=== PATIENT | male | born 1965 | race Two or more races ===

== ENCOUNTER 2022-04-09 11:28 | Inpatient (IN) | payer OTHER ==
[~2022-04-09] VITALS: Ht 175.3 cm; Wt 123.0 kg
[2022-04-09 21:43] VITALS: BP 127/86
[2022-04-09 22:29] VITALS: BP 127/86
[2022-04-09] MEDS ORDERED: MORPHINE SULFATE INJ 2 MG/ml SYRG IV PRN (23:30)
[2022-04-09] MEDS ORDERED: NITROGLYCERIN 0.4 MG SL TAB SL PRN (23:30)
[2022-04-09] MEDS ORDERED: DEXTROSE (50%) 50ML SYRG IV PRN (23:45)
[2022-04-10] VITALS (8 sets, daily range): BP systolic 103–117; BP diastolic 64–77
[2022-04-10 06:12] LABS: Basophils # (auto) 0 10 ^3/uL (0-0.2); Basophils % (auto) 0.8 % (0.0-2.0); Eosinophils # (auto) 0.2 10 ^3/uL (0-0.8); Eosinophils % (auto) 3.9 % (0.0-7.0); Hematocrit 47.5 % (41.0-53.0); Hemoglobin 15.9 g/dL (13.5-17.5); Lymphocytes # (auto) 1.8 10 ^3/uL (0.4-5.4); Lymphocytes % (auto) 32.8 % (10.0-50.0); Mean Corpuscular Hemoglobin 30.2 pg (28.0-32.0); Mean Corpuscular Hgb Conc. 33.5 g/dL (32.0-36.0); Mean Corpuscular Volume 90.3 fL (80.0-100.0); Monocytes # (auto) 0.5 10 ^3/uL (0-1.3); Monocytes % (auto) 9.3 % (0.0-12.0); Neutrophils % (auto) 53.2 % (37.0-80.0); Nucleated Red Blood Cells % 0.1 %; Red Blood Cells 5.26 10^6/uL (4.5-5.90); Red Cell Distribution Width 13.1 % (11.8-14.3); White Blood Cell 5.6 10^3/uL (4.4-10.8)
[2022-04-10 06:30] LABS: Albumin 3.6 g/dL (3.4-5.0); Calcium 8.8 mg/dL (8.5-10.1); Potassium 3.7 mmol/L (3.5-5.1)
[2022-04-10 06:34] LABS: BUN/Creatinine Ratio 16.3; Bilirubin, Total 0.8 mg/dL (0.2-1.0); Total Protein 6.4 g/dL (6.4-8.2)
[2022-04-10] MEDS: InsuLIN REG 1unit/0.01ml Soln (100units/ml) SC SCH ×4 (07:00→22:06)
[2022-04-10] MEDS: ACCU-CHEK COMFORT CURVE STRIP VI SCH ×4 (07:51→22:04)
[2022-04-10 08:00] LABS: Salicylate < 1.7 mg/dL (2.8-20.0)
[2022-04-10 08:05] LABS: Acetaminophen < 2.0 ug/mL (10-30)
[2022-04-10 08:40] LABS: Folate (Folic Acid) 22.27 ng/mL (5.38-24)
[2022-04-10] MEDS ORDERED: CLOPIDOGREL BISULFATE 75 MG TAB PO SCH (10:00)
[2022-04-10] MEDS ORDERED: ASPirin 81 mg TAB PO SCH (10:00)
[2022-04-10] MEDS ORDERED: ENOXAPARIN SOD 40 MG/0.4 ML SYRINGE SC SCH ×2 (10:00)
[2022-04-10 10:56] LABS: Urine Bacteria NONE SEEN /hpf (None Seen); Urine Blood Negative /uL (Negative); Urine Specific Gravity 1.006 (1.001-1.035); Urine WBC <1 /hpf (0 - 3)
[2022-04-10] MEDS ORDERED: ERGOCALCIFEROL 50,000 UNIT(1.25MG) CAP PO SCH ×2 (11:00→16:30)
[2022-04-10 11:21] LABS: Alcohol, Urine < 3.0 mg/dL (0-10); Amphetamine Screen, Urine NEGATIVE (NEGATIVE); Barbiturate Scree,Urine NEGATIVE (NEGATIVE); Benzodiazephine Screen, Urine NEGATIVE (NEGATIVE); Cannabinoid Screen, Urine NEGATIVE (NEGATIVE); Cocaine Screen, Urine NEGATIVE (NEGATIVE); Opiate Scree,Urine NEGATIVE (NEGATIVE); Phencyclidine Screen, Urine NEGATIVE (NEGATIVE)
[2022-04-10 14:08] LABS: Hepatitis B Surface Antibody Negative (Negative)
[2022-04-10 14:14] LABS: Hepatitis C Antibody Negative (Negative)
[2022-04-10 14:27] LABS: Hepatitis A Total Antibody Positive (Negative)
[2022-04-10] MEDS ORDERED: AMIODARONE HCL 200 MG TAB PO ONE (16:15)
[2022-04-10] MEDS: AMIODARONE HCL 200 MG TAB PO SCH (22:07)
[2022-04-10] MEDS: APIXABAN 5 MG TAB PO SCH (22:07)
[2022-04-11 05:13] VITALS: BP 126/88
[2022-04-11 06:26] LABS: Albumin 3.5 g/dL (3.4-5.0); BUN/Creatinine Ratio 18.1; Bilirubin, Total 0.8 mg/dL (0.2-1.0); Calcium 8.5 mg/dL (8.5-10.1); Total Protein 6.4 g/dL (6.4-8.2)
[2022-04-11] MEDS: ACCU-CHEK COMFORT CURVE STRIP VI SCH ×2 (06:58→11:02)
[2022-04-11] MEDS: InsuLIN REG 1unit/0.01ml Soln (100units/ml) SC SCH ×2 (06:59→11:02)
[2022-04-11] MEDS: APIXABAN 5 MG TAB PO SCH (08:36)
[2022-04-11] MEDS: AMIODARONE HCL 200 MG TAB PO SCH (08:36)
[2022-04-11] MEDS ORDERED: LORA-622 PO (08:59)
[2022-04-11 09:00] VITALS: BP 132/79
[2022-04-11] MEDS ORDERED: SERT50TA19 PO (09:00)
[2022-04-11] MEDS ORDERED: METF-370 PO (09:00)
[2022-04-11] MEDS ORDERED: ATOR20TA PO (09:01)
[2022-04-11] MEDS ORDERED: LISI20TA28 PO (09:01)
[2022-04-11] MEDS ORDERED: ASPI-543 PO ×2 (09:02→11:35)
[2022-04-11] MEDS ORDERED: METOPROLOL SUCCINATE XL 50 MG TAB PO SCH (10:00)
[2022-04-11] MEDS ORDERED: APIX5TAB PO (11:35)
[2022-04-11] MEDS ORDERED: METO-6 PO ×3 (11:35→11:38)
[2022-04-11] MEDS ORDERED: AMIO200T4 PO (11:35)
[2022-04-11] MEDS ORDERED: ERGO1CAP23 PO (11:35)
[2022-04-11 12:03] VITALS: BP 131/85
[2022-04-11 13:00] VITALS: BP 131/85
[2022-04-11] MEDS ORDERED: ATORVASTATIN 20 MG TAB PO SCH (22:00)
== END 2022-04-11 13:58 | disposition home or self-care (01) | DRG 309 ==
LOC: TELE-CENTR 20:00
PROVIDERS: ADMIT Internal Medicine; ATTEND Internal Medicine
DX: I48.0 Paroxysmal atrial fibrillation (principal); Z68.41 Body mass index [BMI] 40.0-44.9, adult; E66.01 Morbid (severe) obesity due to excess calories; I10 Essential (primary) hypertension; E55.9 Vitamin D deficiency, unspecified; E11.9 Type 2 diabetes mellitus without complications; G47.33 Obstructive sleep apnea (adult) (pediatric); E78.5 Hyperlipidemia, unspecified; F17.200 Nicotine dependence, unspecified, uncomplicated; Z79.01 Long term (current) use of anticoagulants; Z79.84 Long term (current) use of oral hypoglycemic drugs; Z83.3 Family history of diabetes mellitus; Z86.73 Personal history of transient ischemic attack (TIA), and cerebral infarction without residual deficits
CPT/HCPCS: 36415; 70545; 70551; 71045; 76705; 80053; 80061; 80307; 80329; 81001; 82306; 82607; 82746; 82962; 83036; 83735; 84443; 85025; 85379; 86704; 86706; 86708; 86803; 87340; 93005; 93306; 93886; 95819; G0378; J1815